=== PATIENT | female | born 1960 | race Caucasian/White ===

== ENCOUNTER 2018-03-30 08:39 | Emergency (ER) | payer OTHER ==
--- NOTE | 2018-03-30 09:25 | EDPHY ---
General Time Seen by Provider: 03/30/18 09:19 Narrative: CHIEF COMPLAINT: Ankle injury HISTORY OF PRESENT ILLNESS: Patient presents with complaints of left ankle pain status post injury. She states she was hiking at [place] earlier this morning when "I rolled my ankle and heard a loud pop." She states immediate onset of severe pain in the ankle and midfoot. The pain is more lateral on the ankle and central the midfoot. Worse with palpation and movement. Unable to bear weight. No numbness or tingling. No injury or pain anywhere else on her person. No laceration or puncture. no other associated complaints or modifying factors. She is currently visiting from [place] DOMINANT EXTREMITY: Right-hand dominant ESTABLISHED ORTHOPEDIST: None locally REVIEW OF SYSTEMS: Ten systems reviewed and are negative unless otherwise noted in the HPI PAST MEDICAL HISTORY: Orthopedic injuries PAST SURGICAL HISTORY: No recent surgeries SOCIAL HISTORY: Nonsmoker. Lives in [place] and currently visiting a friend here in [place]. 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 Good signs of perfusion left lower extremity. Neurological: A&O, sensory symmetric, strength symmetric of the great toes. Skin: Warm and dry, no rash. No petechiae. No purpura. No puncture laceration. Extremities: Moderate swelling and tenderness to the left ankle, lateral greater than medial. There is also tenderness to the left midfoot. No crepitus or deformity. Range of motion not tested as there was a fracture on the x-ray prior to my examination. There is no tenderness to the proximal fibula on the left or the calf on the left. Psychiatric: Mood and affect normal DIFFERENTIAL DIAGNOSES: Including but not limited to sprain, strain, fibular fracture, tibial fracture, midfoot fracture MDM: 9:20 a.m. Acute left ankle sprain with oblique distal fibular fracture without displacement. I do not appreciate any abnormalities of the tibia. On exam she does have tenderness of the midfoot distally, not visualized on the x-ray that was performed before my examination. Thus I have ordered a dedicated foot series. She is declining pain medication at this time 9:40 a.m. Plain film of the foot does reveal a metatarsal fracture proximally. Official interpretation is pending. The ankle has been read as above by radiologist. No other acute finding. 9:55 a.m. X-ray has been read by radiologist as a proximal intra-articular fracture of the 4th metatarsal. I re-evaluated the patient. The application of the Bryant boot was very painful, thus I have ordered pain medication. We will attempt to ambulate her on crutches and determined Eduard boot versus posterior splint. 10:40 a.m. Patient has been placed in a Eduard boot but was going back and forth between this and a posterior leg splint. She has ambulated on crutches and ultimately decided on a Bryant boot. We discussed nonweightbearing until seen by orthopedist when she returns home to [place] on Tuesday. She will contact them later today to schedule an appointment. We discussed ice and elevation, anti- inflammatories and Percocet pain medication as provided. She is comfortable this plan and discharged home stable condition. SUPERVISION: This patient was independently evaluated without direct involvement of or examination by the attending physician. ED Precautions: Worsening pain. Erythema, edema, cyanosis, pallor, paresthesia or anesthesia. - Diagnostics Imaging Results: Imaging Impressions Ankle X-Ray 03/30/18 08:51 Impression: Distal fibular fracture. Foot X-Ray 03/30/18 09:18 Impression: Nondisplaced distal fibular fracture, and intra-articular fracture involving the central base of the fourth metatarsal. - History Smoking Status: Never smoked - Objective Vital Signs: Initial Vital Signs Temperature (C) 97.9 F 03/30/18 08:49 Heart Rate 77 03/30/18 08:49 Respiratory Rate 18 03/30/18 08:49 Blood Pressure 170/88 H 03/30/18 08:49 O2 Sat (%) 92 03/30/18 08:49 O2 Delivery Mode Room Air Allergies/Adverse Reactions: No Known Allergies Allergy (Unverified 03/30/18 08:51) Home Medications: Medication Instructions Recorded Omeprazole 03/30/18 oxyCODONE HCL/ACETAMINOPHEN 1 each PO Q4-6PRN PRN #19 tablet 03/30/18 [Percocet 5-325 mg Tablet] Medications Given: Discontinued Medications Morphine Sulfate (Morphine) 4 mg IVP EDNOW ONE Stop: 03/30/18 09:59 Last Admin: 03/30/18 10:02 Dose: 4 mg Departure - Departure Disposition: Home, Routine, Self-Care Clinical Impression: Closed fracture of left distal fibula Qualifiers: Encounter type: initial encounter Fracture morphology: other fracture Qualified Code(s): S82.832A - Other fracture of upper and lower end of left fibula, initial encounter for closed fracture Metatarsal fracture Qualifiers: Encounter type: initial encounter Metatarsal bone: fourth Fracture type: closed Physeal involvement: involving physis Salter-Avila Fracture Type: unspecified configuration Laterality: left Qualified Code(s): S99.102A - Unspecified physeal fracture of left metatarsal, initial encounter for closed fracture Condition: Good Instructions: Ankle Fracture (DC), Foot Fracture in Adults (ED) Additional Instructions: 1. Ice and elevate the extremity often 2. Nonweightbearing to the left lower extremity until seen by your orthopedist in [place]. Please use her crutches as provided 3. Ibuprofen [id number], 400 mg every 6-8 hours as needed for pain and swelling 4. Aspirin [id number], 81 mg once daily for the next 7-14 days 5. Percocet pain medication as prescribed as needed 6. Contact your orthopedist in [place] for definitive care 7. Return here for any worsening pain, swelling, numbness or tingling Referrals: NONE *PRIMARY CARE P,. [Primary Care Provider] - As per Instructions Hannah Pearson MD [Medical Doctor] - As per Instructions Prescriptions: oxyCODONE HCL/ACETAMINOPHEN [Percocet 5-325 mg Tablet] 1 each PO Q4-6PRN PRN # 19 tablet PRN Reason: Pain, Breakthrough
[2018-03-30 10:39] VITALS: BP 170/103
== END 2018-03-30 11:35 | disposition home or self-care (01) ==
DX: S82.832A Other fracture of upper and lower end of left fibula, initial encounter for closed fracture (principal); S99.102A Unspecified physeal fracture of left metatarsal, initial encounter for closed fracture; X58.XXXA Exposure to other specified factors, initial encounter; Y99.8 Other external cause status; Y93.01 Activity, walking, marching and hiking
CPT/HCPCS: 96374; J2270; L4386

== ENCOUNTER 2018-04-01 11:49 | Emergency (ER) | payer OTHER ==
--- NOTE | 2018-04-01 12:53 | CPEKG ---
Heart Rate: 73 RR Interval: 822 P-R Interval: 164 QRSD Interval: 90 QT Interval: 392 QTC Interval: 432 P Padroni: 45 QRS Padroni: -4 T Wave Padroni: 18 EKG Severity - ABNORMAL ECG - EKG Impression: SINUS RHYTHM EKG Impression: LEFT VENTRICULAR HYPERTROPHY Electronically Signed By: Ajit Stephens 02-Apr-2018 07:37:36
--- NOTE | 2018-04-01 13:01 | EDPHY ---
H & P Time Seen by Provider: 04/01/18 12:30 HPI/ROS: CHIEF COMPLAINT: Shortness of breath HISTORY OF PRESENT ILLNESS: Patient is a 57-year-old female who presents emergency department with mild lightheadedness and shortness of breath. The patient fractured her fibula and metatarsal 2 days ago after sustaining a fall. Her left lower extremity has been splinted and she has been using crutches. Today she noticed some mild shortness of breath while at breakfast. She also felt minimally lightheaded. She had no chest pain. No recent cough or fever. She has had no new leg pain or swelling. Patient states her grandmother had a history of clots. REVIEW OF SYSTEMS: My complete review of systems is negative except as mentioned in the HPI. Past Medical/Surgical History: Includes GERD, right ankle surgery Smoking Status: Never smoked Physical Exam: Vitals noted GENERAL: Well-appearing, in no acute distress, alert. HEENT: Eyes normal to inspection, normal pharynx, no signs of dehydration. NECK: [No thyromegaly, no lymphadenopathy, supple. RESPIRATORY: Clear to auscultation bilaterally, no rales, rhonchi or wheezing. CVS: Regular rate and rhythm, no rubs, murmurs, or gallops. ABDOMEN: Soft, nontender, nondistended, no organomegaly. BACK: Normal to inspection, no CVA tenderness. SKIN: Normal color, no rash, warm, dry. No pallor. EXTREMITIES: Splint on the left lower extremity. No pedal edema, no calf tenderness, no Homans sign or cords, no joint swelling. NEURO/PSYCH: Alert and oriented, normal mood and affect, normal motor sensory exam. Constitutional: Initial Vital Signs Temperature (C) 37.5 C 04/01/18 11:54 Heart Rate 84 04/01/18 11:54 Respiratory Rate 16 04/01/18 11:54 Blood Pressure 148/90 H 04/01/18 11:54 O2 Sat (%) 98 04/01/18 11:54 O2 Delivery Mode Room Air Allergies/Adverse Reactions: Sulfa (Sulfonamide Antibiotics) Allergy (Verified 04/01/18 11:53) Home Medications: Medication Instructions Recorded Ibuprofen 04/01/18 Medical Decision Making - Diagnostics Imaging Results: Imaging Impressions Chest X-Ray 04/01/18 12:56 Impression: Query airways disease with no superimposed acute abnormality identified. Extremity Venous Study 04/01/18 12:58 Impression: No evidence of deep vein thrombosis in the left lower extremity. Results called and discussed with AGUSTIN DEL CASTILLO M.D. on 04/01/2018 at 13:59. ED Course/Re-evaluation: In the emergency department I discussed possible etiologies with the patient. I answered all her questions. IV was placed. Laboratory studies, EKG and chest x-ray were ordered. Patient had ultrasound of her left lower extremity. EKG shows normal sinus rhythm, normal rate, normal axis, normal intervals. Left ventricular hypertrophy. There are no ST or T-wave abnormalities. Ultrasound: No DVT Patient's laboratory studies were unremarkable. Troponin was negative. I discussed the results with the patient. I answered all her questions. She was given warnings. I gave her travel precautions. She will return with worsening symptoms. Differential Diagnosis: My differential includes but is not limited to DVT, PE, bronchitis, pneumonia, ACS, acute PA, CHF - Data Points Laboratory Results: Laboratory Results 04/01/18 12:14 04/01/18 12:14 04/01/18 04/01/18 12:14 12:14 WBC 9.35 10^3/uL 10^3/uL (3.80-9.50) RBC 4.64 10^6/uL 10^6/uL (4.18-5.33) Hgb 13.6 g/dL g/dL (12.6-16.3) Hct 40.3 % % (38.0-47.0) MCV 86.9 fL fL (81.5-99.8) MCH 29.3 pg pg (27.9-34.1) MCHC 33.7 g/dL g/dL (32.4-36.7) RDW 13.2 % % (11.5-15.2) Plt Count 287 10^3/uL 10^3/uL (150-400) MPV 11.1 fL fL (8.7-11.7) Neut % (Auto) 59.5 % % (39.3-74.2) Lymph % (Auto) 28.9 % % (15.0-45.0) Clay % (Auto) 9.0 % % (4.5-13.0) Eos % (Auto) 1.9 % % (0.6-7.6) Baso % (Auto) 0.4 % % (0.3-1.7) Nucleat RBC Rel Count 0.0 % % (0.0-0.2) Absolute Neuts (auto) 5.56 10^3/uL 10^3/uL (1.70-6.50) Absolute Lymphs (auto) 2.70 10^3/uL 10^3/uL (1.00-3.00) Absolute Monos (auto) 0.84 10^3/uL H 10^3/uL (0.30-0.80) Absolute Eos (auto) 0.18 10^3/uL 10^3/uL (0.03-0.40) Absolute Basos (auto) 0.04 10^3/uL 10^3/uL (0.02-0.10) Absolute Nucleated RBC 0.00 10^3/uL 10^3/uL (0-0.01) Immature Gran % 0.3 % % (0.0-1.1) Immature Gran # 0.03 10^3/uL 10^3/uL (0.00-0.10) Sodium 145 mEq/L mEq/L (135-145) Potassium 3.7 mEq/L mEq/L (3.3-5.0) Chloride 111 mEq/L H mEq/L (97-110) Carbon Dioxide 22 mEq/l mEq/l (22-31) Anion Gap 12 mEq/L mEq/L (8-16) BUN 14 mg/dL mg/dL (7-23) Creatinine 0.5 mg/dL L mg/dL (0.6-1.0) Estimated GFR > 60 Glucose 90 mg/dL mg/dL (70-100) Calcium 9.6 mg/dL mg/dL (8.5-10.4) NT-Pro-B Natriuret Pep 47 pg/mL pg/mL (0-125) Departure - Departure Disposition: Home, Routine, Self-Care Clinical Impression: Shortness of breath Condition: Good Instructions: Shortness of Breath (ED) Additional Instructions: Return with increasing shortness of breath, chest pain, fever or any other concerns. Referrals: NONE *PRIMARY CARE P,. [Primary Care Provider] - As per Instructions
[2018-04-01 13:04] LABS: PLATELET COUNT 287 10^3/uL (150-400)
[2018-04-01 14:31] VITALS: BP 157/99
== END 2018-04-01 15:32 | disposition home or self-care (01) ==
DX: R06.02 Shortness of breath (principal)
CPT/HCPCS: 84484-PO